=== PATIENT | male | born 1950 | race Caucasian/White ===

== ENCOUNTER 2019-05-28 18:24 | Inpatient (IN) ==
[2019-05-28] MEDS ORDERED: ASPIRIN PO ONE (18:55)
--- NOTE | 2019-05-28 19:19 | Diag Imaging Result Doc PS360 ---
EXAM: CHEST-2 VIEWS 05/28/2019 HISTORY: SOB TECHNIQUE: PA and lateral chest COMMENT: There is bibasilar subsegmental atelectasis. The inspiration is suboptimal. IMPRESSION: Bibasilar atelectasis. Electronically signed by Prem Dixon 05/28/2019 7:17 PM
[2019-05-28 20:03] LABS: BASO# 0.01 X1000 (0.0-0.2); BASO% 0.1 % (0.0-0.8); EOS# 0.02 X1000 (0.0-0.7); EOS% 0.1 % (0.0-10.0); HEMATOCRIT 37.3 % (42.0-52.0); HEMOGLOBIN 13.2 g/dL (14.0-18.0); IMM GRAN# 0.05 X1000 (0.0-0.04); IMM GRAN% 0.3 % (0.0-0.5); LYMPH# 0.74 X1000 (1.2-3.4); LYMPH% 4.1 % (20.5-51.1); MCH 32.7 PG (27-31); MCHC 35.4 g/dL (33-37); MCV 92.3 FL (81-99); MONO# 2.17 X1000 (0.11-0.59); MONO% 12.2 % (1.7-9.3); MPV 12.6 FL (7.4-10.4); NEUT# 14.87 X1000 (1.4-6.5); NEUT% 83.2 % (42.2-75.2); PLT 206 X1000 (130-400); RBC 4.04 XMIL (4.7-6.1); RDW 17.1 % (11.5-14.5); WBC 17.86 X1000 (4.8-10.8)
[2019-05-28 20:08] LABS: INR 1.98
[2019-05-28 20:09] LABS: PTT 35.8 Seconds (22.3-41.8)
--- NOTE | 2019-05-28 20:49 | PROVIDER DOCUMENTATION ---
This chart was entered by Madi Beltran Scribe, acting as scribe for Alley Madsen MD. HPI-General Adult - General Chief Complaint: Shortness of Breath Stated Complaint: SOB, WHEEZING Time Seen by Provider: 05/28/19 19:32 Source: patient, family Allergies/Adverse Reactions: Patient Allergies Allergy/AdvReac Type Severity Reaction Status Date / Time No Known Allergies Allergy Verified 05/14/19 21:55 Home Medications: Home Medication List Medication Instructions Recorded Confirmed Last Taken Type LISINOpril [Prinivil] 20 mg PO BID 01/10/17 05/25/19 05/24/19 21:00 History Metoprolol Succinate E.r. [Toprol 25 mg PO DAILY 01/10/17 05/25/19 05/24/19 21:00 History Xl] Cefpodoxime Proxetil 200 mg PO BID 05/14/19 05/25/19 05/24/19 21:00 History Hydrochlorothiazide 25 mg PO DAILY 05/14/19 05/25/19 05/24/19 21:00 History Morphine Sulfate 15 mg PO Q6-8H PRN PRN 05/14/19 05/25/19 05/24/19 21:00 History Ondansetron [Zofran] 4 mg PO Q8HR PRN 05/14/19 05/25/19 05/24/19 21:00 History - History of Present Illness -Gen Adult Nature of Presenting Problems: Pt is a 68 yom who presents to the ED with family with a CC of multiple complaints. Pt's reports the pt is a liver cancer pt. Pt's states the pt has been short of breath, had a dry cough, had edema, weak, confused, and constipated for approximately one week. Pt's reports the pt was seen last week by his cancer doctor for his edema and states his Bilirubin was elevated. Pt's reports the pt was taken to [facility] and states no blockage was found. Pt's reports the pt had a paracentesis preformed three days ago. Pt's reports the pt's shortness of breath and confusion worsened yesterday. Pt's also states the pt has been constipated since Friday and states that his last bowel movement was Friday morning. Pt complains of chest pain and abdominal pain. Location of Pain/Injury: reports: chest, abdomen Pain Radiation: reports: no radiation Quality of Pain: reports: aching Severity: reports: mild Onset/Duration: reports: 1 week ago Timing: reports: still present Associated Symptoms: reports: chest pain, constipation, cough, shortness of breath, trouble walking, other (Edema) Similar Symptoms Previously?: Yes Recently seen or treated by another doctor?: Yes Review of Systems - Adult - REVIEW OF SYSTEMS - ADULT Constitutional: reports: see HPI Eyes: reports: no symptoms reported Ears, Nose, Mouth & Throat: reports: no symptoms reported Cardiovascular: reports: see HPI, chest pain Respiratory: reports: see HPI, cough, shortness of breath Gastrointestinal: reports: see HPI, abdominal pain, constipation Genitourinary: reports: no symptoms reported Musculoskeletal: reports: see HPI, joint swelling Integumentary: reports: no symptoms reported Neurological: reports: see HPI, other (Confusion) Psychiatric: reports: no symptoms reported Endocrine: reports: see HPI Hematologic/Lymphatic: reports: no symptoms reported Allergic/Immunologic: reports: no symptoms reported All Other Systems: Reviewed and Negative Past History - Adult - PAST MEDICAL HISTORY-ADULT Review of Records: reports: Old Records Reviewed, Nursing Assessment Review, Medications Reviewed, Social history reviewed & non-contributory. Major Childhood Illnesses: reports: denies history Cardiovascular: reports: HTN Respiratory: reports: denies history Gastrointestinal: reports: cancer (liver) Obstetrical/Gynecological: reports: denies history Genitourinary: reports: denies history Musculoskeletal: reports: denies history Neurological: reports: denies history Endocrine/Immune: reports: denies history Other Conditions: reports: denies history - PRIOR SURGERIES/PROCEDURES Surgical/Procedure History: reports: none - IMMUNIZATION STATUS Childhood Immunizations: See Nurse Assessment Flu Vaccine: See Nurse Assessment - FAMILY HISTORY Family History: reviewed, not pertinent - SOCIAL HISTORY Smoking: denies Substance Use: none/never, denies Alcohol Use Frequency: never Physical Exam-General - PHYSICAL EXAM-ADULT Initial Vital Signs Reviewed: Yes - CONSTITUTIONAL General Appearance: alert, mild distress - EYES Eyes: PERRL/EOMI - HEAD, EARS, NOSE, MOUTH & THROAT HENMT: normocephalic/atraumatic, moist mucous membranes - NECK Neck: non-tender, full range of motion - RESPIRATORY Respiratory: chest non-tender, lungs clear, normal breath sounds - CARDIOVASCULAR Cardiovascular: normal peripheral pulses, regular rate, rhythm - GASTROINTESTINAL (ABDOMEN) Abdominal Exam: tenderness (Mildly) - MUSCULOSKELETAL Extremity: erythema, swelling - SKIN Integumentary: erythema, swelling, tenderness - PSYCHIATRIC Psych/Mental Status: normal mood/affect, normal thought content, normal thought process, oriented x 3 Progress - PLAN OF CARE/RESULTS Progress/Plan/Lab Results: Vital Signs - 8 hr 05/28/19 18:41 Temperature 97.8 F Pulse Rate 96 H Respiratory Rate 16 Blood Pressure 143/84 O2 Sat by Pulse Oximetry 96 Laboratory Results - last 24 hr 05/28/19 05/28/19 19:51 19:51 WBC 17.86 H RBC 4.04 L Hgb 13.2 L Hct 37.3 L MCV 92.3 MCH 32.7 H MCHC 35.4 RDW Std Deviation 17.1 H Plt Count 206 MPV 12.6 H Immature Gran % (Auto) 0.3 Neut % (Auto) 83.2 H Lymph % (Auto) 4.1 L [place] % (Auto) 12.2 H Eos % (Auto) 0.1 Baso % (Auto) 0.1 Immature Gran # (Auto) 0.05 H Neut # (Auto) 14.87 H Lymph # (Auto) 0.74 L [place] # (Auto) 2.17 H Eos # (Auto) 0.02 Baso # (Auto) 0.01 PT 23.0 H INR 1.98 PTT (Actin FS) 35.8 Orders Category Date Time Status Cardiac Monitoring DIRECTED Care 05/28/19 18:55 Active Cardiac Monitoring DIRECTED Care 05/28/19 18:56 Active Finger Stick Blood Sugar (ED) DIRECTED Care 05/28/19 18:56 Active Oxygen Therapy- ED Nursing DIRECTED Care 05/28/19 18:55 Active Oxygen Therapy- ED Nursing DIRECTED Care 05/28/19 18:56 Active Saline Loc NOW Care 05/28/19 18:55 Active Saline Loc NOW Care 05/28/19 18:56 Active CHEST-2 VIEWS [RAD] Stat Exams 05/28/19 18:55 Completed ALCOHOL BLOOD Stat Lab 05/28/19 19:51 Received AMMONIA [CHEM] Stat Lab 05/28/19 19:54 Ordered CBC WITH ELECTRONIC DIFF [HEME] Stat Lab 05/28/19 19:51 Completed CK PROFILE [SP CHEM] Stat Lab 05/28/19 19:51 Received COMPREHENSIVE METABOLIC PANEL [CHEM] Stat Lab 05/28/19 19:51 Received LACTATE, PLASMA [CHEM] Stat Lab 05/28/19 19:51 Received PRO B-NATRIURETIC PEPTIDE Stat Lab 05/28/19 19:51 Received PROTIME WITH INR [COAG] Stat Lab 05/28/19 19:51 Completed PTT [COAG] Stat Lab 05/28/19 19:51 Completed TROPONIN T Stat Lab 05/28/19 19:51 Received URINALYSIS [URINALYSIS] Stat Lab 05/28/19 18:57 Uncollected Aspirin Med 05/28/19 18:55 Discontinued 325 mg PO NOW ONE Altered Mental Status Stat Oth 05/28/19 18:56 Ordered CP/SOB/Palp >45 yrs of Age Stat Oth 05/28/19 18:55 Ordered EKG [EKG] Stat Ther 05/28/19 18:55 Ordered Result Diagrams: 05/28/19 19:51 - EKG 1 Time of EKG reading by physician:: 18:32 EKG Read and Signed by:: Alley Madsen EKG Interpretation (*Must complete 3 of following elements*): Abnormal (Left axis deviation; Possible anterior infarct, age undetermined) Rate: 96 Rhythm: NSR [place]: left QRS: normal [place] Interval: normal ST Wave: normal - XRAY 1 XRAY: Bilateral XRAY Study: Chest Impression: See EMR Report (EXAM: CHEST-2 VIEWS 05/28/2019 HISTORY: SOB TECHNIQUE: PA and lateral chest COMMENT: There is bibasilar subsegmental atelectasis. The inspiration is suboptimal. IMPRESSION: Bibasilar atelectasis. Electronically signed by Perm Dixon 05/28/2019 7:17 PM 05/28/191916 Interpreting Physician: Prem Dixon MD Dictated Date/Time: 05/28/191915 cc: Amalia Mason MD; Adrian Box MD) - CONSULTS/PCP/HOSPITALIST Notification #1 *Consult/PCP/Hospitalist*: d/w Dr Bullock Time Discussed: 21:45 Consult Disposition: Admit Departure - Departure Date of Disposition Decision: 05/28/19 Time of Disposition Decision: 21:50 DIAGNOSIS: Hx of primary malignant neoplasm of liver, Dyspnea, Atelectasis of both lungs, Altered mental status, Jaundice, Sepsis Disposition: ADMITTED INPATIENT 09 Certified Medical Emergency: Emergent Condition: Stable Additional Instructions: ED Follow Up Instructions: You have been treated by a care provider in the Emergency Department. These instructions are being provided to you so you can have an understanding of how to care for yourself upon discharge. Upon discharge from the Emergency Dep artment, you are responsible for making arrangements for follow-up care by a physician of your choice. Take all prescribed medications as directed. Return to the Emergency Department immediately for any new or worsening symptoms. You may call the Physician Referral phone number at [phone] to obtain a list of Physicians who are taking new patients. Referrals and Follow-Ups: Adrian Box MD [Primary Care Provider] - - Critical Care Note This patient required my direct & personal management of CC.: No Attestation - Physician/ TAMIA Attestation Patient care was provided by Advanced Practice Provider:: No The physician spent face to face time with patient:: Yes Advanced Practice Provider documentation review:: Supervising physician onsite and consulted in the evaluation and care of this patient. The physician did have a face to face encounter with the patient. This chart was documented by the indicated scribe, (Madi Beltran, Mary) and accurately reflects the services I performed and decisions made by me, Alley Madsen MD, as attested by the provider's signature.
[2019-05-28] MEDS ORDERED: ZOSYN 4.5 GM in NS 100 ML IV ONE (21:18)
[2019-05-28 21:27] LABS: URINE SOURCE CLEAN CATCH
[2019-05-28 21:29] LABS: BILIRUBIN URINE LARGE (NEGATIVE); BLOOD URINE NEGATIVE (NEGATIVE); COLOR YELLOW; GLUCOSE URINE NEGATIVE (NEGATIVE); KETONE URINE NEGATIVE (NEGATIVE); LEUKOCYTES URINE NEGATIVE (NEGATIVE); NITRITE URINE NEGATIVE (NEGATIVE); PH URINE 5.5; PROTEIN URINE TRACE mg/dL (NEGATIVE); SP GRAVITY URINE 1.015; TURBIDITY URINE HAZY (CLEAR); UROBILINOGEN URINE 2 mg/dL (NORMAL)
[2019-05-28 21:32] LABS: UR EPITHELIAL CELLS <10 /HPF (<10); URINE BACTERIA NEGATIVE /HPF; URINE RBC 20-40 /HPF (<10); URINE WBC <10 /HPF (<10)
[2019-05-28 22:10] LABS: INR 1.99; PROTIME 23.1 Seconds (11.0-16.0)
--- NOTE | 2019-05-28 22:26 | EKG Report ---
Test Performed on : 05/28/2019 6:31:06 PM Test Reason : SOB Blood Pressure : / mmHG Vent. Rate : 096 BPM Atrial Rate : 096 BPM P-R Int : 172 ms QRS Dur : 096 ms QT Int : 352 ms P-R-T Axes : 063 -39 064 degrees QTc Int : 444 ms Normal sinus rhythm. Left axis deviation Possible Anterior infarct , age undetermined Abnormal ECG When compared with ECG of 24-JAN-2009 07:13, Borderline criteria for Anterior infarct are now present Unconfirmed Result
[2019-05-28 22:27] LABS: ALB/GLOB RATIO 0.6; ALBUMIN 2.2 g/dL (3.5-5.0); CALCIUM 8.1 mg/dL (8.8-10.2); CREATININE 2.1 mg/dL (0.7-1.2); POTASSIUM 5.7 mmol/L (3.5-5.1); TOTAL PROTEIN 5.8 g/dL (6.3-8.3)
[2019-05-28] MEDS ORDERED: APRESOLINE IV PRN (22:31)
[2019-05-28] MEDS ORDERED: LASIX IV ONE (22:34)
[2019-05-28] MEDS ORDERED: CALCIUM GLUCONATE 1 GM in NS 50 ML IV ONE (22:38)
[2019-05-28] MEDS ORDERED: HUMULIN R IV ONE (22:39)
[2019-05-28] MEDS ORDERED: ALBUTEROL 0.5% INH CONC FOR HYPERKALEMIA INH ONE (22:39)
[2019-05-28] MEDS ORDERED: D50W SYRINGE IV ONE (22:39)
[2019-05-28] MEDS ORDERED: SODIUM BICARBONATE 8.4% IV PUSH ONE (22:39)
[2019-05-28] MEDS ORDERED: ALBUTEROL 0.5% INH CONC FOR HYPERKALEMIA ONE (22:58)
[2019-05-28 22:59] LABS: TOTAL BILIRUBIN 18.27 mg/dL (0.20-1.00)
--- NOTE | 2019-05-28 23:14 | HISTORY AND PHYSICAL ---
CHIEF COMPLAINT: Shortness of breath. HISTORY OF PRESENT ILLNESS: This is an unfortunate 68-year-old male who comes in with complaint of recently diagnosed liver cancer within the last month. I believe he has been receiving treatments by Dr. Box. He had a paracentesis as well as his treatment I believe on Friday this week. The states that he has had a dry cough which has caused him some shortness of breath. Also states he has not had a bowel movement since Friday and he has had progressive confusion. The patient does have an elevated white blood cell count. However, I am unable to quantify this. He is confused. We will place him on broad spectrum antibiotics and place him in the hospital for further evaluation and treatment. PAST MEDICAL HISTORY: Hypertension, liver cancer. PREVIOUS SURGICAL HISTORY: Denies. SOCIAL HISTORY: Lives with . Quit tobacco and alcohol 12 years ago. No illicit drugs. FAMILY HISTORY: Mother had diabetes mellitus. Denies other. ALLERGIES: No known drug allergies. HOME MEDICATIONS: A list has not been reconciled with dosages. However, the says she thinks all he takes is a fluid pill, Zofran and morphine at this time. REVIEW OF SYSTEMS: Fourteen-point review of systems conducted with the patient. He is altered but denies complaint at this time. Pertinent positives for admission are listed above in the HPI. PHYSICAL EXAMINATION: VITAL SIGNS: Temperature 97.8, pulse 101, respirations 15, blood pressure 155/89, oxygen saturation 95% on room air. GENERAL: Very jaundiced 68-year-old male sitting in the ER stretcher. He is confused, oriented to person, very pleasant, in no acute distress. HEENT: Head is atraumatic, normocephalic. Pupils equal, round, reactive to light. Extraocular eye movement is intact. Sclerae are jaundiced. Conjunctiva is somewhat pale. Oral mucosa is dry. NECK: Supple. No JVD. No thyromegaly. Trachea is midline. No cervical lymphadenopathy. CARDIAC: S1, S2 appreciated. No murmurs, gallops, rubs. LUNGS: Decreased bilateral bases. No rhonchi, wheezes, rales. Symmetric rise and fall with respirations. ABDOMEN: Protuberant, slightly distended. Bowel sounds hypoactive all 4 quadrants. Tender to palpation in the epigastric area and right upper quadrant. EXTREMITIES: Three-plus pitting edema in bilateral lower extremities mid thigh down. Two-plus pedal pulses bilaterally. No clubbing, cyanosis. GENITOURINARY: No bladder distention. Otherwise deferred. NEUROLOGICAL: Oriented only to person. Follows commands somewhat. However, cranial nerves 2 through 12 could not be fully tested. The patient continually tries to get up out of the bed. DIAGNOSTIC DATA: Chest x-ray: Bibasilar atelectasis. LABORATORY DATA: WBC 17.86. Hemoglobin 13.2. Hematocrit 37.3. Platelet count 206. PT 23.1. INR 1.99. Sodium 127. Potassium 5.7. Chloride 91. Carbon dioxide 22. BUN 62. Creatinine 2.1. Glucose 126. Total bilirubin 17.79. ASSESSMENT AND PLAN: 1. Liver cancer. I believe the patient has received treatments from Dr. Box. We will consult him. His total bilirubin continues to elevate. It is now at 17.79. He also appears to have an acute kidney injury. We will consult Dr. Box as noted. Give patient fluids. We will also give albumin and Lasix as he is very edematous in his lower extremities and is third spacing. 2. Hypertension. Patient is marginally hypertensive at this time. We will treat with p.r.n. hydralazine. 3. Hepatic encephalopathy. We will start patient on lactulose b.i.d. His ammonia was within normal limits. However. This is more of a clinical diagnosis. 4. Leukocytosis. As noted, we will continue renally dosed Zosyn. 5. Code status needs to be addressed with the patient. Defer this to primary team and Oncology. Dictated by JERICHO Silva for Arnulfo Bullock MD I have performed a face to face diagnostic evaluation. Labs/ Xrays- reviewed. Exam- Chest- rales, CV- regular, Neuro- Altered. A/P- AMS, Liver cancer,- Admit, neuro checks, oncology consult. Dr. Bullock. cc: JERICHO Silva MD Primary care providers [facility]
[2019-05-29] MEDS: ALBUMIN 25% IV SCH ×2 (00:18→06:17)
[2019-05-29] MEDS: LACTULOSE PO SCH ×3 (00:45→20:02)
[2019-05-29] MEDS ORDERED: NS 1,000 ML IV ONE (01:03)
[2019-05-29] MEDS ORDERED: TESSALON PO PRN (01:03)
[2019-05-29] MEDS: MORPHINE IV PRN ×5 (01:18→20:02)
[2019-05-29] MEDS: ZOSYN 2.25 GM in NS 50 ML IV SCH ×5 (05:05→21:38)
[2019-05-29 08:03] LABS: BASO# 0.01 X1000 (0.0-0.2); BASO% 0.1 % (0.0-0.8); HEMATOCRIT 30.2 % (42.0-52.0); HEMOGLOBIN 10.7 g/dL (14.0-18.0); IMM GRAN# 0.03 X1000 (0.0-0.04); IMM GRAN% 0.2 % (0.0-0.5); LYMPH# 0.91 X1000 (1.2-3.4); LYMPH% 5.6 % (20.5-51.1); MCH 33.2 PG (27-31); MCHC 35.4 g/dL (33-37); MCV 93.8 FL (81-99); MONO# 1.92 X1000 (0.11-0.59); MONO% 11.9 % (1.7-9.3); MPV 11.3 FL (7.4-10.4); NEUT# 13.26 X1000 (1.4-6.5); NEUT% 82.2 % (42.2-75.2); PLT 138 X1000 (130-400); RBC 3.22 XMIL (4.7-6.1); RDW 16.8 % (11.5-14.5); WBC 16.13 X1000 (4.8-10.8)
[2019-05-29] MEDS: ZOFRAN IV PRN ×2 (08:25→13:28)
[2019-05-29 08:31] LABS: ALB/GLOB RATIO 0.9; ALBUMIN 2.6 g/dL (3.5-5.0); CALCIUM 8.4 mg/dL (8.8-10.2); CREATININE 2.4 mg/dL (0.7-1.2); TOTAL PROTEIN 5.4 g/dL (6.3-8.3)
[2019-05-29 08:54] LABS: TOTAL BILIRUBIN 16.71 mg/dL (0.20-1.00)
[2019-05-29] MEDS ORDERED: LASIX IV ONE (09:00)
[2019-05-29] MEDS ORDERED: ALBUMIN 25% IV ONE (10:08)
[2019-05-29] MEDS ORDERED: SANDOSTATIN SUBQ SCH (10:30)
[2019-05-29] MEDS ORDERED: PROAMATINE PO SCH (10:30)
--- NOTE | 2019-05-29 11:10 | PROGRESS NOTE ---
DATE: 05/29/2019 INTERVAL HISTORY: Mr. Andujar was admitted overnight for suspected acute on chronic liver failure, suspected acute hepatic encephalopathy. SUBJECTIVE: The patient is confused, so most of the history was obtained by the patient's at bedside. Apparently, the patient was diagnosed with hepatic focal adenocarcinoma, poorly differentiated, with areas of necrosis and fibrosis, as well as intra-abdominal lymphadenopathy in April 2019 and so far has received 3 cycles of treatment of nivolumab. His last cycle was 5 days before current presentation, however, 10 days before current presentation he was found to have acute rise in bilirubin and was sent to [facility] where they did not detect any infection in his ascitic fluid nor was there any biliary ductal obstruction and he was discharged home. Since last 48 hours he has had increasing confusion, he has had worsening cough so he was brought to the emergency room. His vitals have been rather stable. He appears to be confused. PHYSICAL EXAMINATION: Vitals: Currently temperature 98.1 degrees, pulse 97, respiratory rate 14, blood pressure 114/56. He is saturating 96% on room air. General: Does not appear in any acute distress. He is very confused. He has marked scleral icterus. Oral cavity is dry. Lungs: Air entry bilaterally equal. No wheeze, rhonchi, or crackles. Cardiovascular: S1, S2 normal. Tachycardic. No murmur, rub, or gallop. Abdomen: Distended. Generalized tenderness, dullness to percussion over bilateral flanks. Active bowel sounds. Extremities: Bilateral lower extremity edema extending up to the thigh. He also has right leg cellulitis or it could be a fixed drug reaction. LABS: Suggestive of a leukocytosis, normocytic anemia, normal platelet count. His chemistry is suggestive of hyponatremia, hypochloremia, hyperkalemia, low bicarbonate, elevated anion gap, acute kidney injury. He also has lactic acidosis, which has been worsening. MICROBIOLOGY: Blood cultures are in laboratory. IMAGING: Currently pending, head CT. ASSESSMENT AND PLAN: 1. Acute encephalopathy. Could be in the setting of worsening tumor burden, lactic acidosis, acute kidney injury. The reported left upper extremity weakness. I will get the head CT to rule out any CVA. Unclear history of liver cirrhosis makes hepatic encephalopathy a possibility as well. He has been on Nivoloumab which could cause autoimmune encephalitis. 2. Liver failure. According to reports, he had a bilirubin close to 10 seven days prior to current presentation, and she was told that the patient had cirrhosis, last week. I will get repeat CT scan of the abdomen and pelvis in this hospital. Apparently his ALT is not remarkably elevated and his platelet count is normal. Cirrhosis needs to be ruled out. I will follow up CT abd/pelvis. 3. Acute kidney injury. This could be related to intravascular volume depletion or his use of diuretics at home. I am resuscitating him with intravenous fluids and getting urine electrolytes. I will await CT scan of the abdomen and pelvis results to see if there is any evidence of cirrhosis, portal hypertension, or hepatorenal syndrome. Based on that I will start him on octreotide and midodrine on top of his intravenous albumin. 4. Reported constipation and altered mental status. I will start him on lactulose prophylactically, rifaximin and bisacodyl. Apparently, his ammonia level was normal. 5. Suspected sepsis, with presence of lactic acidosis, I will keep him on intravenous fluids and follow up serial lactate. Because of his hepatic disease clearance of lactate could be difficult. 6. Recently diagnosed hepatic adenocarcinoma. I am unsure if these are metastatic lesions adenocarcinoma with unknown primary or hepatocellular carcinoma. I will appreciate Oncology recommendation. I will get hepatitis panel. DISPOSITION: I will monitor the patient in PVC. I will consult Oncology and Gastroenterology. Plan of care was discussed with the patient's and the nursing team. Their questions have been answered. cc: Saúl Forrest MD MTDD
[2019-05-29] MEDS: DULCOLAX PR SCH ×3 (12:15→21:39)
[2019-05-29] MEDS: XIFAXAN PO SCH ×2 (12:56→20:02)
[2019-05-29] MEDS: NS 1,000 ML IV SCH ×3 (13:00→20:47)
[2019-05-29] MEDS ORDERED: REGLAN IV PRN (15:34)
[2019-05-29] MEDS ORDERED: SODIUM CHLORIDE 0.9% 10 ML ONE (16:42)
[2019-05-29] MEDS: ALBUMIN 25% IV ONE ×2 (16:56→18:00)
--- NOTE | 2019-05-29 18:24 | Diag Imaging Result Doc PS360 ---
EXAM: CT HEAD W/O CONTRAST HISTORY: LUE weakness, encephalopathy TECHNIQUE: CT head without contrast COMPARISON: None. FINDINGS: No parenchymal hemorrhage. No epidural or subdural hematoma. No subarachnoid hemorrhage. Mild chronic microvascular ischemic changes No mass identified on this noncontrasted exam. No hydrocephalus. No sinus opacification. IMPRESSION: 1.No hemorrhage 2.Mild chronic microvascular ischemic changes This exam was performed using automated exposure control, adjustment of mA or kV according to patient size, and/or use of iterative reconstruction technique. Electronically signed by Ciaran Tillman 05/29/2019 6:21 PM
--- NOTE | 2019-05-29 18:29 | Diag Imaging Result Doc PS360 ---
EXAM: CT ABDOMEN/PELVIS W/O CONTRAST HISTORY: Evaluate for intrahepatic biliary dilatation TECHNIQUE: CT abdomen and pelvis without contrast COMPARISON: 03/22/2019 FINDINGS: Trace right pleural fluid with basilar atelectasis versus a small infiltrate There is fatty infiltration of the liver. The liver is nodular. Hypodense area superiorly are similar. No definite intrahepatic biliary ductal dilatation although this is a noncontrasted exam. There is a moderate amount of fluid about the liver and spleen. No splenomegaly. The gallbladder is contracted. There is sludge within it. No inflammation about the pancreas. Normal adrenal glands. There are tiny renal calcifications which may be arterial. Prominent atherosclerosis in the abdominal aorta. No aortic aneurysm. No bowel obstruction. No abscess. There is a Norton catheter in the urinary bladder. Moderate free fluid in the pelvis. The subcutaneous edema in the lower abdomen and pelvis. IMPRESSION: 1.Cirrhosis 2.Prominent atherosclerosis 3.Likely sludge in the gallbladder This exam was performed using automated exposure control, adjustment of mA or kV according to patient size, and/or use of iterative reconstruction technique. Electronically signed by Ciaran Tillman 05/29/2019 6:27 PM
--- NOTE | 2019-05-29 19:03 | HEMO/ONC CONSULTATION ---
DATE: 05/29/2019 HPI: Mr. Andujar is a 68-year-old gentleman who is well known to Dr. Box for his multifocal hepatocellular carcinoma. He has diffuse disease involving the liver and lymph nodes and has been on palliative treatment with Opdivo, with his most dose given 05/25/2019. He was admitted with worsening liver failure and renal failure, and we are consulted for assistance with the same. LABORATORY DATA: His baseline bilirubin and creatinine in the office within the last week were: Total bilirubin 11.7, creatinine 1.8. ASSESSMENT/PLAN: Dr. Box has been considering switching his Opdivo therapy to an oral TKI if he were continuing to have progression of his elevated LFTs. This was all thought to be disease related. We will follow along and leave further recommendations as indicated based on hospital course. cc: MD Leann Serna MD
[2019-05-29 19:20] LABS: CALCIUM 7.8 mg/dL (8.8-10.2); CREATININE 1.9 mg/dL (0.7-1.2); POTASSIUM 4.8 mmol/L (3.5-5.1)
[2019-05-29] MEDS ORDERED: MORPHINE IV ONE (21:42)
[2019-05-30] MEDS: MORPHINE IV PRN (01:31)
[2019-05-30] MEDS ORDERED: ATIVAN IV ONE (01:52)
[2019-05-30] MEDS ORDERED: BENADRYL IV ONE (01:53)
[2019-05-30] MEDS: ZOSYN 2.25 GM in NS 50 ML IV SCH ×6 (03:46→21:28)
[2019-05-30] MEDS: DULCOLAX PR SCH (03:46)
[2019-05-30 06:07] LABS: EOS# 0.03 X1000 (0.0-0.7); EOS% 0.3 % (0.0-10.0); HEMATOCRIT 29.4 % (42.0-52.0); HEMOGLOBIN 10.3 g/dL (14.0-18.0); IMM GRAN# 0.02 X1000 (0.0-0.04); IMM GRAN% 0.2 % (0.0-0.5); LYMPH# 0.76 X1000 (1.2-3.4); LYMPH% 6.5 % (20.5-51.1); MCH 32.6 PG (27-31); MONO# 0.98 X1000 (0.11-0.59); MONO% 8.4 % (1.7-9.3); MPV 11.1 FL (7.4-10.4); NEUT# 9.92 X1000 (1.4-6.5); NEUT% 84.6 % (42.2-75.2); PLT 107 X1000 (130-400); RBC 3.16 XMIL (4.7-6.1); RDW 16.9 % (11.5-14.5); WBC 11.71 X1000 (4.8-10.8)
[2019-05-30] MEDS: NS 1,000 ML IV SCH (06:20)
[2019-05-30 06:45] LABS: INR 2.64; PROTIME 28.9 Seconds (11.0-16.0)
[2019-05-30 06:51] LABS: ALB/GLOB RATIO 1.2; CALCIUM 8.1 mg/dL (8.8-10.2); POTASSIUM 4.5 mmol/L (3.5-5.1); TOTAL BILIRUBIN 17.87 mg/dL (0.20-1.00); TOTAL PROTEIN 5.6 g/dL (6.3-8.3)
[2019-05-30] MEDS: XIFAXAN PO SCH ×2 (08:42→20:50)
[2019-05-30] MEDS: LACTULOSE PO SCH ×4 (08:42→16:42)
[2019-05-30] MEDS ORDERED: MORPHINE IV PRN (08:53)
[2019-05-30] MEDS ORDERED: DULCOLAX PR SCH (09:00)
[2019-05-30] MEDS ORDERED: NS 1,000 ML IV SCH (09:49)
[2019-05-30] MEDS: ALBUMIN 25% IV SCH ×3 (10:15→21:28)
--- NOTE | 2019-05-30 10:35 | PROGRESS NOTE ---
DATE: 05/30/2019 INTERVAL HISTORY: There was a delay in obtaining his head CT scan as well as abdominal CT scan. I had to talk with the nursing team on multiple occasions. However, eventually, he did get his CAT scan which did not have any acute cerebrovascular accident. Abdomen and pelvis CAT scan did detect nodularity in the liver suggestive of cirrhosis without any biliary obstruction. There has not been any change in his mental status. SUBJECTIVE: The patient is in the bed, still confused. He was intermittently agitated, requiring lorazepam overnight. He is not able to engage in the conversation meaningfully. Does not appear to be in acute distress. VITALS: Temperature 98.4 degrees, pulse 106, respiratory rate 19, blood pressure 136/68, he is saturating 96% on room air. PHYSICAL EXAMINATION: He has marked icterus. Oral cavity is dry. Lungs: Air entry bilaterally equal. No wheeze, rhonchi, crackles. Cardiovascular: S1, S2 normal. No murmur, rub, or gallop. Abdomen: Distended, nontender. Dullness to percussion, bilateral flanks. Active bowel sounds. He has bilateral lower extremity edema extending up to thigh. He also has right leg cellulitis. LABS: Suggestive of leukocytosis which is decreasing. Normocytic anemia, thrombocytopenia, coagulopathy. He has persistently elevated BUN and creatinine, though his sodium and electrolytes are better. Persistently elevated transaminitis and bilirubin. IMAGING: No new imaging today. ASSESSMENT AND PLAN: 1. Acute metabolic encephalopathy in the setting of hyperbilirubinemia and acute kidney injury. His lactic acidosis has resolved. His ammonia level was low. Head CT did not have acute cerebrovascular accident. Other differential includes hepatic encephalopathy, nivolumab- induced autoimmune encephalitis, which are less likely at the moment. 2. Acute liver failure in the setting of hepatocellular carcinoma. His elevated bilirubin and alkaline phosphatase could indicate intrahepatic cholestasis because of worsening tumor burden. I will appreciate gastroenterology input. 3. Acute kidney injury with hyponatremia and hypochloremia. His electrolytes marginally improved with intravenous fluids but his kidney function remains as it was yesterday. His fractional excretion of sodium indicates prerenal pathology. I will treat it as hepatorenal syndrome and start him on midodrine and octreotide. I will also keep giving him intravenous albumin. 4. Constipation with altered mental status. I will treat him empirically for hepatic encephalopathy with rifaximin, lactulose, and bisacodyl. He has had good bowel movements. 5. Suspected sepsis with presence of lactic acidosis. I will keep him on intravenous fluids. His lactic acidosis has resolved. Keep him on broad-spectrum intravenous antibiotics. 6. Recently diagnosed hepatic adenocarcinoma with lymphadenopathy. Oncology team on board. 7. Disposition. The patient has a poor prognosis and the palliative care team has also been consulted. Currently, his code status is full by default as family has not decided about his long-term issues. cc: Saúl Forrest MD
[2019-05-30] MEDS: LACTULOSE MISC SCH ×2 (12:26→17:34)
[2019-05-30] MEDS: SANDOSTATIN SUBQ SCH ×2 (12:57→20:50)
[2019-05-30] MEDS: PROAMATINE PO SCH ×2 (12:57→16:40)
--- NOTE | 2019-05-30 13:05 | GASTROENTEROLOGY CONSULTATION ---
DATE: 05/30/2019 REASON FOR CONSULTATION: Acute liver failure, abnormal LFTs. HISTORY OF PRESENT ILLNESS: Mr. Kobe Andujar is a 68-year-old gentleman with past medical history of hypertension, cirrhosis, multifocal HCC diagnosed in 04/2019, on Opdivo, who presented 2 days ago with worsening confusion, generalized weakness, and shortness of breath. The history is obtained from the medical record and the patient's at bedside given the patient's altered mental status. Mr. Andujar was diagnosed with HCC in early April after presenting to his primary care doctor with abdominal pain, and having workup done from there. He underwent a biopsy of multifocal liver lesion that confirmed his HCC in mid-April, and has received 3 cycles of Op[address]o by Dr. Box. His last treatment was this past Friday. He was recently discharged from [facility] after being treated with pneumonia. Early last week, on Friday, he underwent LVP with 2.5 L of ascites removed. The notes that over the last couple of weeks, he has become more jaundiced and confused. He has been having some nausea without any vomiting. No fevers, rectal bleeding, or melena. He has had some weight gain from ascites. He was on outpatient Lasix and Aldactone. He has never had a paracentesis prior to this past week. No history of encephalopathy in the past. He does not take lactulose at home. He is not on any antibiotics anymore after his pneumonia. REVIEW OF SYSTEMS: As per HPI. Limited secondary to altered mental status. PAST MEDICAL HISTORY: Hypertension, recent diagnosis of cirrhosis and HCC. PAST SURGICAL HISTORY: None. FAMILY HISTORY: No family history of GI malignancies. SOCIAL HISTORY: Prior heavy drinker and smoker, quit 12 years ago. HOME MEDICATIONS: Dronabinol, Lasix, Aldactone, Zofran, and Opdivo. ALLERGIES: No known drug allergies. PHYSICAL EXAMINATION: Vital Signs: Temperature is 98.4, heart rate 106, respiratory rate 18, blood pressure 136/68, O2 saturation 96% on 2 L nasal cannula. General: The patient is chronically ill-appearing, in no acute distress. HEENT: Scleral icterus is present. Extraocular motor intact. Oropharynx with moist mucous membranes. Neck: Supple. No JVD or lymphadenopathy. Cardiac: Tachycardic. No murmurs. Lungs: Clear to auscultation bilaterally anteriorly. Abdomen: Obese, distended. Bowel sounds are present. Difficult to appreciate ascites. Extremities: There is 3+ pitting edema bilaterally. Neurologic: The patient is not able to verbalize or follow commands. He does have some asterixis. He is moving his extremities spontaneously bilaterally. LABORATORY DATA: White count is 11.7 from 17 on admission, hemoglobin is 10.3 from 13.2, platelets are 107,000 from 206,000. INR is 2.6 from 1.99 on admission. Sodium 137, potassium 4.5 from 5.7, chloride of 97, bicarb 22, BUN of 64, creatinine of 2.0 from a baseline of 1.8 as an outpatient, glucose of 88. Total bilirubin is 17.8 from 18.2, AST of 206 from 270, ALT of 46 from 63, alkaline phosphatase of 430 from 672. Ammonia is 28. Troponins are negative. Total protein of 5.6, albumin 3.0, lactate of 2.1 from 9.0. UA shows large bilirubin. Alcohol level is negative. IMAGING: Chest x-ray shows bibasilar atelectasis. CT of the abdomen and pelvis without contrast shows cirrhosis, prominent atherosclerosis, gallbladder sludge. Head CT: No acute findings. ASSESSMENT AND PLAN: Mr. Kobe Andujar is a 68-year-old gentleman with multifocal hepatocellular carcinoma, on Opdivo, who was admitted 2 days ago with worsening decompensation of his cirrhosis and probable acute liver failure. He appears to have been significantly volume depleted with lactic acidosis and heme concentration and acute kidney injury. His acute kidney injury has improved slightly, lactic acidosis has resolved, and his blood counts have improved with volume resuscitation. He has been empirically treated for hepatorenal syndrome with octreotide, albumin, midodrine, and intravenous fluids. He is on empiric antibiotics with Zosyn, and receiving Xifaxan. He had 1 bowel movement yesterday, but has not been able to take in any oral lactulose today given his mental status. Overnight, per RN, he was given some Ativan for agitation, trying to get out of the bed. This may be contributing to his somnolence. I recommend avoiding any benzodiazepines in the setting of liver dysfunction. The etiology of his acute liver failure was likely secondary to progressive hepatocellular carcinoma. However, cannot rule out immune mediated hepatitis from Opdivo. Typically, the pattern is hepatocellular in nature, and his current liver function test pattern is cholestatic. There are no signs of biliary dilation on CT. His liver function tests have slightly improved since admission. I have discussed with Dr. Cazares, the possibility of immune mediated hepatitis. We will get a diagnostic paracentesis tomorrow, and if negative for spontaneous bacterial peritonitis, start him on prednisone therapy with 1 mg/kg. Continue to trend his liver function tests and INR daily. We are giving him some vitamin K to reverse his INR. We will start him on lactulose enemas. Recommend goals of care discussion and code status change. Overall, his prognosis is guarded and poor. Thank you for this consult. Will follow with you. Please call with any questions or concerns.
[2019-05-30] MEDS: D5 1/2 NS 1,000 ML IV SCH (16:38)
[2019-05-30] MEDS: MYCOSTATIN POWDER TOP SCH (16:41)
[2019-05-31] MEDS: DILAUDID IV PRN ×3 (00:29→06:24)
[2019-05-31] MEDS: SANDOSTATIN SUBQ SCH ×4 (03:32→20:30)
[2019-05-31] MEDS: ZOSYN 2.25 GM in NS 50 ML IV SCH ×4 (03:32→22:31)
[2019-05-31 06:36] LABS: EOS# 0.06 X1000 (0.0-0.7); EOS% 0.6 % (0.0-10.0); HEMATOCRIT 29.2 % (42.0-52.0); HEMOGLOBIN 10.4 g/dL (14.0-18.0); IMM GRAN# 0.02 X1000 (0.0-0.04); IMM GRAN% 0.2 % (0.0-0.5); LYMPH# 0.79 X1000 (1.2-3.4); LYMPH% 7.6 % (20.5-51.1); MCH 33.1 PG (27-31); MCHC 35.6 g/dL (33-37); MONO# 1.14 X1000 (0.11-0.59); MPV 11.8 FL (7.4-10.4); NEUT# 8.32 X1000 (1.4-6.5); NEUT% 80.6 % (42.2-75.2); PLT 123 X1000 (130-400); RBC 3.14 XMIL (4.7-6.1); RDW 17.2 % (11.5-14.5); WBC 10.33 X1000 (4.8-10.8)
[2019-05-31 06:46] LABS: INR 3.23
[2019-05-31 07:10] LABS: ALB/GLOB RATIO 1.7; ALBUMIN 3.6 g/dL (3.5-5.0); CALCIUM 7.6 mg/dL (8.8-10.2); CREATININE 1.9 mg/dL (0.7-1.2); POTASSIUM 4.1 mmol/L (3.5-5.1); TOTAL PROTEIN 5.7 g/dL (6.3-8.3)
[2019-05-31 07:33] LABS: TOTAL BILIRUBIN 19.85 mg/dL (0.20-1.00)
[2019-05-31] MEDS ORDERED: XYLOCAINE 5% OINT TOP PRN (07:56)
[2019-05-31] MEDS: LACTULOSE MISC SCH ×3 (08:28→16:51)
[2019-05-31] MEDS: VITAMIN K 10 MG in NS 50 ML IV SCH (08:38)
[2019-05-31] MEDS: LACTULOSE PO SCH ×3 (08:38→16:51)
[2019-05-31] MEDS: XIFAXAN PO SCH ×2 (08:38→20:30)
[2019-05-31] MEDS: PROAMATINE PO SCH ×3 (08:38→16:51)
[2019-05-31] MEDS: MYCOSTATIN POWDER TOP SCH (08:38)
[2019-05-31 09:32] LABS: HEPATITIS PROFILE ACUTE SEE COMMENTS
[2019-05-31] MEDS: MARINOL PO SCH ×2 (09:46→20:29)
[2019-05-31] MEDS: MORPHINE IR PO PRN ×2 (09:46→16:51)
--- NOTE | 2019-05-31 09:47 | Diag Imaging Result Doc PS360 ---
US ABD PARACENTESIS W S/I - 05/31/2019 INDICATION: r/o SBP COMPARISON: CT 05/29/2019 FINDINGS: The risks and benefits of the procedure were discussed with the patient. All questions were answered. Written and verbal consent was obtained. Ultrasound scanning demonstrated trace ascites. Overlying skin was prepped and draped in sterile fashion. Anesthesia was achieved with injection of 10 cc 1% lidocaine. The spinal needle was advanced until the return of ascites fluid. 2 mL was aspirated, this was very blood-tinged as there is only trace ascites in this area. The catheter was withdrawn intact. The patient reported no symptoms from the procedure. IMPRESSION: Successful and uncomplicated ultrasound-guided paracentesis. Electronically signed by Adalid Ann 05/31/2019 9:45 AM
--- NOTE | 2019-05-31 10:55 | PROGRESS NOTE ---
DATE: 05/31/2019 INTERVAL HISTORY: He has had multiple bowel movements yesterday. He had started becoming a little more alert. He ate a little bit of Jell-O yesterday. However, at nighttime, he was complaining of pain and wanted to come out of bed, so he received hydromorphone, which did not help, so the patient and family were requesting oral pain medication. In the morning time, he is slightly more alert and interactive than before, though he still appears to be confused. He is not coughing during my examination. is at bedside. VITALS: Temperature 98.5 degrees, pulse 94, respiratory rate 19, blood pressure 150/80. He is saturating 100% on room air. PHYSICAL EXAMINATION: Prominent scleral icterus. Oral cavity is moist. Lungs: Air entry bilaterally equal. No wheeze, rhonchi, or crackles. Cardiovascular: S1, S2 normal. No murmur, rub, or gallop. Abdomen: Distended, nontender. Dullness to percussion on flanks. Right-sided upper quadrant had dressing because of previous paracentesis oozing. Active bowel sounds. Bilateral lower extremity edema, which is worse than before. He also has a right-sided leg cellulitis. He is alert. Examination is currently nonfocal. He was able to reposition himself in the bed and trying to get up. However, he often has confusion and appears delirious. LABS: Suggestive of no leukocytosis, normocytic anemia, thrombocytopenia, elevated INR. He has slight improvement in BUN and creatinine. Blood sugars, he does not have any more hypoglycemia. Bilirubin continues to rise. MICROBIOLOGY: No positive data. IMAGING: He just underwent a paracentesis. ASSESSMENT AND PLAN: 1. Acute metabolic encephalopathy, likely due to acute liver failure, suspected hepatic encephalopathy, uremia from acute kidney injury. I will continue to address his pain with morphine, which was his home medication, with close monitoring of his mental status and address the underlying etiology. 2. Acute liver failure in the setting of hepatocellular carcinoma, ascites with suspected spontaneous bacterial peritonitis, and hepatic encephalopathy, as well as hepatorenal syndrome. He continues to have worsening liver function tests. This could be in the setting of progression of his cancer, spontaneous bacterial peritonitis, as well as suspected autoimmune hepatitis with nivolumab use. Oncology on board. Palliative care on board. I will continue broad-spectrum intravenous antibiotics and treatment of hepatorenal syndrome with intravenous albumin, midodrine, and octreotide with close monitoring of input and output. 3. Acute kidney injury with hyponatremia and hypochloremia, likely because of hepatorenal syndrome, currently stable. Continue management as mentioned above. 4. Constipation and altered mental status. Continue rifaximin and lactulose. 5. Suspected sepsis with presence of lactic acidosis. Plan as mentioned above. The potential source could be spontaneous bacterial peritonitis or mild right lower lung infiltrate. Follow up US paracentesis results. 6. Hepatocellular carcinoma with lymphadenopathy diagnosed in December 2018. Oncology on board. 7. Disposition. Mr. Andujar' prognosis is poor. I have consulted palliative care for further goals of care discussion. He could be an appropriate candidate of palliative care, comfort care or hospice, depending on his course and oncology recommendations. Plan of care discussed with the patient's at bedside. Her questions have been answered. cc: Saúl Forrest MD MTDD
[2019-05-31] MEDS: ALBUMIN 25% IV SCH (11:57)
--- NOTE | 2019-05-31 13:19 | GASTROENTEROLOGY PROGRESS NOTE ---
DATE: 05/31/2019 SUBJECTIVE: Mr. Andujar 68-year-old male resting in bed. Patient speech is slurred. Family at the bedside. The family stated that he had 2 to 3 bowel movements last night. OBJECTIVE: Vital Signs: Temperature is 98.5 degrees, pulse is 94, respirations 19, blood pressure is 154/81, oxygen saturation is 100%. He is on 2 L nasal cannula. His weight is 221 pounds. BMI is 30.1 kg/m2. General: The patient is alert, oriented x2, and in no acute distress. HEENT: Pale conjunctivae. Scleral icterus. PERRL. Neck: Supple. Lungs: Clear to auscultation bilaterally in anterior delarosa. Cardiovascular: The patient is tachycardic. Abdomen: distended, obese. tender, hypoactive bowel sounds present. Extremities: No clubbing, no cyanosis. Pitting edema 3+ bilaterally and cellulitis in the right lower extremity Neurologic: He is alert, oriented x2. LABORATORY DATA: WBC is 10.3, RBCs 3.14, hemoglobin is 10.4, hematocrit is 29.2, platelet count is 123,000. PT is 34, INR 3.23. Sodium 138, potassium 4.1, chloride 99, carbon dioxide is 20, anion gap 19, BUN is 66, creatinine is 1.9, glucose 168, calcium 7.6, total bilirubin 19.85, AST 200, ALT is 45, alkaline phosphatase is 360, albumin is 3.6. Hepatitis B surface antigen was nonreactive. Head CT showed no hemorrhage, mild chronic microvascular ischemic changes. Abdominal CT and pelvis showed cirrhosis, prominent atherosclerosis, likely sludge in the gallbladder. Chest x-ray showed bibasilar atelectasis. IMPRESSION AND PLAN: Jaundice Hepatic encephalopathy Hepatocellular carcinoma Ascites s/p Paracentesis today. Liver failure Coagulopathy Anemia Elevated LFT's PLAN: Patients LFT's are elevated , AST 200, ALT 45 and Alkaline Phos 300. The patient is currently on Xifaxan for his hepatic encephalopathy. Patient is on lactulose 30 ml TID, goal is to have 3-4 bowel movements and titrate if needed. Sandostatin 100 mcg subQ Patient is on antibiotic Zosyn. He is also on vitamin K for his coagulopathy and albumin daily. We will continue to monitor the patient's LFT's and follow the plan of care PCP. This plan was discussed with Dr. Pompa. Please call us with any further questions. Dictated by JERICHO Hernandez for Heriberto Pompa MD cc: Heriberto Pompa MD I have seen and examined the patient myself and I agree with the above plan of care. I have discussed the above with the patient;s and RN at bedside and all questions were answered. The patient's condition is declining and prognosis is poor. Will continue to follow along with daily labs. Please call us with any further questions. MTDD
[2019-05-31] MEDS: D5 1/2 NS 1,000 ML IV SCH ×2 (14:04→20:30)
[2019-05-31 15:54] LABS: BODY FLUID SOURCE ASCETIC FLUID; WBC BF 469 /cumm
[2019-05-31 16:04] LABS: ALBUMIN BODY FLUID 1.4 g/dL
[2019-05-31 16:22] LABS: MONOS 24 %; POLYS 76 %
[2019-06-01] MEDS: ZOSYN 2.25 GM in NS 50 ML IV SCH ×4 (03:34→23:08)
[2019-06-01] MEDS: MORPHINE IR PO PRN ×2 (03:34→20:48)
[2019-06-01] MEDS: SANDOSTATIN SUBQ SCH ×3 (05:11→20:50)
[2019-06-01 05:48] LABS: BASO# 0.01 X1000 (0.0-0.2); BASO% 0.1 % (0.0-0.8); EOS# 0.23 X1000 (0.0-0.7); HEMOGLOBIN 10.7 g/dL (14.0-18.0); IMM GRAN# 0.05 X1000 (0.0-0.04); IMM GRAN% 0.4 % (0.0-0.5); LYMPH# 0.69 X1000 (1.2-3.4); LYMPH% 6.1 % (20.5-51.1); MCHC 34.5 g/dL (33-37); MCV 95.7 FL (81-99); MONO# 1.55 X1000 (0.11-0.59); MONO% 13.8 % (1.7-9.3); MPV 11.6 FL (7.4-10.4); NEUT# 8.71 X1000 (1.4-6.5); NEUT% 77.6 % (42.2-75.2); PLT 127 X1000 (130-400); RBC 3.24 XMIL (4.7-6.1); RDW 17.8 % (11.5-14.5); WBC 11.24 X1000 (4.8-10.8)
[2019-06-01 06:07] LABS: INR 2.82; PROTIME 30.5 Seconds (11.0-16.0)
[2019-06-01 06:25] LABS: ALB/GLOB RATIO 1.7; ALBUMIN 3.4 g/dL (3.5-5.0); CALCIUM 8.3 mg/dL (8.8-10.2); CREATININE 2.1 mg/dL (0.7-1.2); POTASSIUM 3.9 mmol/L (3.5-5.1); TOTAL PROTEIN 5.4 g/dL (6.3-8.3)
[2019-06-01 06:36] LABS: TOTAL BILIRUBIN 22.51 mg/dL (0.20-1.00)
[2019-06-01] MEDS: D5 1/2 NS 1,000 ML IV SCH ×2 (09:22→16:30)
[2019-06-01] MEDS: LACTULOSE PO SCH ×3 (09:25→16:24)
[2019-06-01] MEDS: XIFAXAN PO SCH ×2 (09:25→20:49)
[2019-06-01] MEDS: VITAMIN K 10 MG in NS 50 ML IV SCH (09:25)
[2019-06-01] MEDS: PROAMATINE PO SCH ×3 (09:25→16:24)
[2019-06-01] MEDS: ALBUMIN 25% IV SCH (09:26)
[2019-06-01] MEDS: MYCOSTATIN POWDER TOP SCH (09:26)
[2019-06-01] MEDS: LACTULOSE MISC SCH ×3 (09:27→16:24)
[2019-06-01] MEDS: MARINOL PO SCH ×2 (09:33→20:48)
--- NOTE | 2019-06-01 09:38 | PROGRESS NOTE ---
DATE: 06/01/2019 SUBJECTIVE: The patient seems to be resting comfortably in bed. Apparently, he had a good night. Vital signs are stable, but he has poor prognosis. He has a history of hepatocellular carcinoma. Now, he is having acute kidney injury and elevated LFTs. I had a discussion with the about the situation, and she has decided to change his resuscitation status from full code to DO NOT RESUSCITATE level 1. Time discussing his advanced directive was around 20 minutes. PHYSICAL EXAMINATION: Vital Signs: Temperature 98 degrees, pulse 82, respiratory rate 14, blood pressure 114/67, oxygen saturation 91% on 2 L of nasal cannula. HEENT: Head normocephalic. No trauma. PERRLA. Icteric sclerae. Neck: Supple. No JVD. Central trachea. Chest: Clear to auscultation. Some crepitus at the bases. Abdomen: Soft, distended. It is nontender. Dullness to percussion, mostly on the flank. He has a dressing on the right upper quadrant. Positive bowel sounds. Extremities: There is 3+ to 4+ lower extremity edema, basically anasarca. Right leg erythema with some signs of infection. Neurological: This patient is alert. He is awake. He is hard of hearing. He is following commands. He is oriented x2. He is not oriented to time. LABORATORY DATA: WBC 11.2, hemoglobin 10.7, hematocrit 31, platelets 127,000. Sodium 137, potassium 3.9, chloride 98, bicarbonate 22, BUN 71, creatinine 2.1, glucose 129, calcium 8.3. Bilirubin 22.5, AST 174, ALT 44, alkaline phosphatase 352. ASSESSMENT AND PLAN: 1. Acute metabolic encephalopathy, likely multifactorial due to hepatic failure and uremia from acute kidney injury. Will continue with the same management for now. It looks like he is a little bit better. 2. Acute liver failure in the setting of hepatocellular carcinoma, ascites, and spontaneous bacterial peritonitis, hepatic encephalopathy, as well as hepatorenal syndrome. His bilirubin is worse compared with yesterday. We will continue with the same management for now. Gastroenterology Department, Oncology Department, and also Palliative Care Department on board. 3. Acute kidney injury with hyponatremia and hypochloremia, likely due to hepatorenal syndrome. Currently seems to be stable. Continue with the same management. 4. Constipation and altered mental status. Continue with rifaximin and lactulose. 5. Suspected sepsis with the presence of lactic acidosis, likely due to spontaneous bacterial peritonitis. Also, he has some right lower lung infiltrate and some redness on his legs. Continue with antibiotics. 6. Hepatocellular carcinoma with lymphadenopathy diagnosed in 12/2018. Oncology on board. 7. Poor prognosis. Palliative Care on board. I had a discussion with the at the bedside. We discussed about his advanced directive for about 20 minutes. We have changed his resuscitation status from full code to DO NOT RESUSCITATE level 1. TIME SPENT: Time taking care of this patient was 30 minutes, and time discussing with the , his advance directive, was 20 minutes. cc: Kashif Medrano MD
--- NOTE | 2019-06-01 14:25 | GASTROENTEROLOGY PROGRESS NOTE ---
DATE: 05/31/2019 SUBJECTIVE: Mr. Andujar is a 68-year-old male, resting in bed, alert, oriented x2. Family at the bedside. Family mentioned that the patient was able to keep down some broth and ate a little Jell-O today. So far he has had 2 bowel movements this morning and he had one last night. OBJECTIVE: Vital Signs: Temperature 98 degrees, pulse is 81, respirations 14, blood pressure 114/67, oxygen saturation 91% on 2 L nasal cannula. The patient's weight is 221 pounds, BMI is 30.1 kg/m2. General: He is alert, oriented x2 and in no acute distress. HEENT: Pale conjunctivae. Sclera icterus. PERRL. Neck: Supple. Lungs: Wheezing sound on the right upper lobes. Abdomen: Distended, obese, nontender. Active bowel sounds heard in all 4 quadrants. Extremities: No clubbing, no cyanosis. Pitting edema 3+ bilaterally and cellulitis in the right lower extremity. Neurological: Alert and oriented x3. LABORATORY DATA: WBCs 11.24, RBCs 3.24, hemoglobin is 10.7, hematocrit is 31.0, platelet count is 127,000. PT is 30.5, INR is 2.82. Sodium 137, potassium 3.9, chloride 98, anion gap 17, BUN 71, creatinine is 2.1, glucose 129, calcium 8.3. Total bilirubin is 22.51, AST 174, ALT is 44, alkaline phosphatase is 352. Albumin is 3.4. Ultrasound of the abdomen with paracentesis was done yesterday. The fluid was ascitic fluid, fluid WBCs were 469. Fluid polynuclear WBC of 76, mononuclear WBC of 25. Fluid crystals not reportable and fluid albumin was 1.4. IMPRESSION: 1. Jaundice. 2. Hepatic encephalopathy. 3. Hepatocellular carcinoma. 4. Ascites status post paracentesis. 5. Liver failure. 6. Coagulopathy. 7. Anemia. 8. Elevated liver function tests. PLAN: The patient liver function tests, AST was 174, ALT was 44, alkaline phosphatase was 352. It has been slightly trending downward.The patient is currently on Xifaxan for his hepatic encephalopathy. He is on lactulose 30 mL p.o. 3 times a day. The goal is to have 3-4 bowel movement, and titrate if needed. The patient is on Zosyn antibiotics. He is also receiving vitamin K for his coagulopathy. Patient's ascitic fluid shows spontaneous bacterial peritonitis, patient is on antibiotics and IV albumin. Patient's neurological condition has been improving and he is responding fairly well. We will continue to monitor patient's CBC, BMP, and follow the plan of care per PCP and the oncologist. This plan was discussed with Dr. Garcia. Please call us with any further questions or concerns. Dictated by JERICHO Hernandez for Marty Garcia MD Physician Attestation I have seen and examined the patient. I have discussed and reviewed the the note by Charlotte ECHAVARRIA and agree with findings and plan as documented. In brief, Mr. Kobe Andujar is a 68 year old man with metastatic HCC treated with Opdivo who was admitted with worsening decompensated cirrhosis in the setting of SBP. He is slowly improving on zosyn. He was empirically treated for HRS; however, this is not likely in setting of infection. Will stop octreotide/midodrine. Transaminases/ALP decreasing; INR and bilirubin remain elevated. Bilirubin usually lags behind AST and ALT. Imaging is negative for intra or extra-hepatic biliary dilation; therefore, biliary obstruction unlikely and ERCP is not indicated. Continue antibiotics, lactulose/rifaximin, and trending LFTs/INR daily. Recommend continued GOC discussion with family. Overall prognosis is poor. MTDD
[2019-06-01] MEDS ORDERED: LASIX IV ONE (22:04)
[2019-06-02] MEDS: ZOSYN 2.25 GM in NS 50 ML IV SCH ×4 (03:58→21:34)
[2019-06-02] MEDS: MORPHINE IR PO PRN ×2 (06:37→17:03)
[2019-06-02 06:38] LABS: BASO# 0.04 X1000 (0.0-0.2); BASO% 0.3 % (0.0-0.8); EOS# 0.23 X1000 (0.0-0.7); EOS% 1.5 % (0.0-10.0); HEMATOCRIT 33.1 % (42.0-52.0); HEMOGLOBIN 11.1 g/dL (14.0-18.0); IMM GRAN# 0.09 X1000 (0.0-0.04); IMM GRAN% 0.6 % (0.0-0.5); LYMPH# 1.12 X1000 (1.2-3.4); LYMPH% 7.5 % (20.5-51.1); MCH 33.8 PG (27-31); MCHC 33.5 g/dL (33-37); MCV 100.9 FL (81-99); MONO# 1.76 X1000 (0.11-0.59); MONO% 11.9 % (1.7-9.3); MPV 11.9 FL (7.4-10.4); NEUT% 78.2 % (42.2-75.2); PLT 103 X1000 (130-400); RBC 3.28 XMIL (4.7-6.1); RDW 18.5 % (11.5-14.5); WBC 14.84 X1000 (4.8-10.8)
[2019-06-02 07:28] LABS: ALB/GLOB RATIO 1.9; ALBUMIN 3.3 g/dL (3.5-5.0); CALCIUM 7.8 mg/dL (8.8-10.2); CREATININE 2.3 mg/dL (0.7-1.2); POTASSIUM 3.9 mmol/L (3.5-5.1); TOTAL BILIRUBIN 25.02 mg/dL (0.20-1.00)
--- NOTE | 2019-06-02 09:04 | PROGRESS NOTE ---
DATE: 06/02/2019 SUBJECTIVE: Patient is resting comfortably in bed. He is sleepy, but arousable, oriented x2. He is not oriented to time. He has a history of hepatocellular carcinoma; now he is having kidney injury and elevated liver function tests. I had a long discussion with the about his resuscitation status yesterday. We have placed this patient do not resuscitate level 1, and I communicated with his oncologist, Dr. Box, who will evaluate this patient today, but I believe this patient should go home with hospice. On the other hand, I also communicated with the palliative care team to evaluate this patient. OBJECTIVE: Vital Signs: Temperature 98.7 degrees, pulse 85, respiratory rate 14, blood pressure 131/68, oxygen saturation 96% on 2 L of nasal cannula. HEENT: Head normocephalic no trauma. PERRLA, icteric sclerae. Skin: Jaundice. Neck: Supple. No JVD. Central trachea. Chest: Clear to auscultation. Some crepitus at the bases. Abdomen: Soft, distended. He is nontender due to super percussion ascites. He has a dressing on the right upper quadrant. Positive bowel sounds. Extremities: Three to four plus lower extremity edema, basically anasarca. Right leg is with some signs of erythema. Neurological examination: This patient is sleepy, but arousable, oriented x2. He is hard of hearing. He is oriented to time, but he is able to recognize family members at the bedside. LABORATORY: WBC 14.8, hemoglobin 11.1, hematocrit 33.1, platelets 103. Sodium 139, potassium 3.9, chloride 101, bicarbonate 20. BUN 75, creatinine 2.3, glucose 116, calcium 7.8. AST 178, ALT 40, alkaline phosphatase 360, bilirubin 25.02. ASSESSMENT AND PLAN: 1. Acute metabolic encephalopathy, multifactorial due to hepatic failure and repeat uremia from acute kidney injury, spontaneous bacterial peritonitis, looks a little bit better, but still a little bit confused. As per the at the bedside, he has been confused on and off. 2. Acute liver failure in the setting of hepatocellular carcinoma, ascites, spontaneous bacterial peritonitis, hepatic encephalopathy, as well as probably hepatorenal syndrome. His bilirubin and kidney function are worse today. Gastroenterology Department, Oncology and Palliative Care Department on board. Likely this patient will go home with hospice. 3. Acute kidney injury with hyponatremia, hypochloremia. Likely he has a hepatorenal syndrome. 4. Constipation and altered mental status. Continue with rifaximin and lactulose. 5. Suspected sepsis with the presence of lactic acidosis and spontaneous bacterial peritonitis. Continue with same management. 6. Hepatocellular carcinoma with lymphadenopathy diagnosed in December of 2018. Oncology on board. Hopefully, he will be evaluated today at noon. Overall this patient has extremely poor prognosis. Palliative Care will be on board. I have been discussing with the family member at the bedside about hospice and she agreed with that. I will let the palliative care team to take care of the patient. Oncology will evaluate this patient also. . cc: Kashif Medrano MD
[2019-06-02] MEDS: LACTULOSE MISC SCH ×3 (09:33→16:37)
[2019-06-02] MEDS: LACTULOSE PO SCH ×3 (09:33→16:36)
[2019-06-02] MEDS: MARINOL PO SCH ×2 (09:33→21:34)
[2019-06-02] MEDS: ALBUMIN 25% IV SCH (09:33)
[2019-06-02] MEDS: MYCOSTATIN POWDER TOP SCH (09:34)
[2019-06-02] MEDS: VITAMIN K 10 MG in NS 50 ML IV SCH (09:37)
[2019-06-02] MEDS: XIFAXAN PO SCH ×2 (09:37→21:34)
[2019-06-02] MEDS: D5 1/2 NS 1,000 ML IV SCH (12:49)
--- NOTE | 2019-06-02 13:37 | PROVIDER PROGRESS NOTE ---
Progress Note S: No acute overnight events. He has had 3 bowel movements since yesterday. Poor PO intake. No abdominal pain, N/V. O: Last Vital Signs Temp 98.2 F 06/02/19 12:32 Pulse 88 06/02/19 12:32 Resp 14 06/02/19 12:32 BP 125/59 06/02/19 12:32 Pulse Ox 97 06/02/19 12:32 Height 6 ft Weight 222 lb 4 oz GEN: chronically ill-appearing HEENT: +icterus, MMM, EOMI NECK: supple, no JVD CV: RRR, no murmurs PULM: CTAB anteriorly ABD: soft NT/ND, BS present EXT: 3+ LE edema NEURO: AAOx2, no asterixis LABS: 06/02/19 06/02/19 05:30 05:30 WBC 14.84 H Hgb 11.1 L Plt Count 103 L Sodium 139 Potassium 3.9 Chloride 101 Carbon Dioxide 20 L BUN 75 H Creatinine 2.3 H Glucose 116 H Total Bilirubin 25.02 H AST 178 H ALT 40 Alkaline Phosphatase 360 H Total Protein 5.0 L Albumin 3.3 L # SBP # HRS # Hepatic encephalopathy # Decompensated cirrhosis # HCC # Coagulopathy # Thrombocytopenia A/P: Mr. 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 He is had some improvement with antibiotics and lactulose/rifaxmin. He is s/p octreotide/midodrine and albumin with minimal improvement of renal function. Labs notable for worsening leukocytosis and bilirubin. AST/ALT improving. Family and patient are planning on discharge with hospice services. In light of this, will sign off. Please call with questions. Will sign off. Please call with questions
[2019-06-03] MEDS: ZOSYN 2.25 GM in NS 50 ML IV SCH ×3 (04:36→12:04)
[2019-06-03] MEDS: MORPHINE IR PO PRN (04:53)
[2019-06-03 05:57] LABS: BASO# 0.02 X1000 (0.0-0.2); BASO% 0.1 % (0.0-0.8); EOS# 0.11 X1000 (0.0-0.7); EOS% 0.8 % (0.0-10.0); HEMATOCRIT 32.7 % (42.0-52.0); HEMOGLOBIN 11.1 g/dL (14.0-18.0); IMM GRAN# 0.09 X1000 (0.0-0.04); IMM GRAN% 0.6 % (0.0-0.5); LYMPH# 0.86 X1000 (1.2-3.4); LYMPH% 5.9 % (20.5-51.1); MCH 33.1 PG (27-31); MCHC 33.9 g/dL (33-37); MCV 97.6 FL (81-99); MONO# 1.51 X1000 (0.11-0.59); MONO% 10.3 % (1.7-9.3); MPV 12.5 FL (7.4-10.4); NEUT# 12.01 X1000 (1.4-6.5); NEUT% 82.3 % (42.2-75.2); PLT 100 X1000 (130-400); RBC 3.35 XMIL (4.7-6.1); RDW 17.8 % (11.5-14.5)
[2019-06-03 06:29] LABS: ALB/GLOB RATIO 1.7; ALBUMIN 3.1 g/dL (3.5-5.0); CALCIUM 8.3 mg/dL (8.8-10.2); CREATININE 2.9 mg/dL (0.7-1.2); TOTAL PROTEIN 4.9 g/dL (6.3-8.3)
[2019-06-03 06:40] LABS: TOTAL BILIRUBIN 26.1 mg/dL (0.20-1.00)
[2019-06-03] MEDS: LACTULOSE PO SCH (08:31)
[2019-06-03] MEDS: ALBUMIN 25% IV SCH (08:31)
[2019-06-03] MEDS: XIFAXAN PO SCH (08:31)
[2019-06-03] MEDS: MARINOL PO SCH (08:31)
[2019-06-03] MEDS: LACTULOSE MISC SCH (08:33)
--- NOTE | 2019-06-03 10:56 | DISCHARGE SUMMARY ---
ADMISSION DATE: 05/29/2019 DISCHARGE DATE: 06/03/2019 DISCHARGE DIAGNOSES: 1. Metabolic encephalopathy, multifactorial due to hepatic failure, uremia, spontaneous bacterial peritonitis. 2. Acute liver failure in the setting of hepatocellular carcinoma. 3. Hepatocellular carcinoma. 4. Spontaneous bacterial peritonitis. 5. Hepatic encephalopathy. 6. Hepatorenal syndrome. 7. Acute kidney injury. 8. Constipation. 9. Sepsis due to spontaneous bacterial peritonitis. 10. Poor prognosis. Do not resuscitate level 1. Discharged home with hospice. CONSULTATIONS: 1. Gastroenterology Department Dr. Garcia, Dr. Pompa. 2. Hematology/Oncology Dr. Leann Cazares PROCEDURES PERFORMED: 1. Chest x-ray dated 05/28/2019: Impression bibasilar subsegmental atelectasis. 2. Abdomen and pelvis CT scan dated 05/29/2019: Impression liver cirrhosis, prominent atherosclerosis, likely sludge in the gallbladder. 3. Head CT dated 05/29/2019: Impression no hemorrhage, mild chronic microvascular ischemic changes. HOSPITAL COURSE: Mr. Andjuar is an unfortunate 68-year-old male recently diagnosed with hepatocellular carcinoma, treating by Dr. Box. He has been getting paracentesis done as an outpatient. He came in because of shortness of breath and constipation, but the main concern was confusion. He has an elevated white blood cell count. He was admitted with broad-spectrum antibiotics. He was evaluated by Gastroenterology Department and Hematology/Oncology Department. He was placed on medications to stimulate the bowel function, also he was placed on antibiotics. Paracentesis was done and showed SBP. The kidneys upon admission where failing and they are getting worse on a daily basis. At the beginning of this month on 05/14/2019 the creatinine was 1, today is 2.9, and he has signs of deterioration. Palliative Care was consulted and after a long discussion with the at the bedside his resuscitation status was changed to DNR and also they opted to go home with hospice, which will happen today. At the moment of discharge, this patient has extremely poor prognosis. He is confused. He is weak. PHYSICAL EXAMINATION: Vital Signs: Temperature 98.1 degrees, pulse 86, respiratory rate 15, blood pressure 123/63, oxygen saturation 98 on 2 L of nasal cannula. HEENT head normocephalic, no trauma. PERRLA. Anicteric sclera. Skin jaundice. Neck is supple no JVD. Central trachea. Chest: Coarse breath sounds bilaterally with crepitus at the bases. Abdomen is distended. He has ascites. Dressing in the right upper quadrant. Positive bowel sounds. Extremities 3 to 4+ lower extremity edema, basically anasarca, some erythema on the right side. Neurological examination this patient is sleepy, but arousable. He is disoriented. He is hard of hearing. LABORATORY: WBC 14.6, hemoglobin 11.1, hematocrit 32.7, platelets 100,000. Sodium 135, potassium 4, chloride 98, bicarbonate 20, BUN 18, BUN 82, creatinine 2.9, glucose 114, calcium 8.3, AST 180, ALT 42, alkaline phosphatase 311, albumin 3.1. DISCHARGE MEDICATIONS: 1. Tessalon 200 mg p.o. t.i.d. as needed for cough. 2. Dronabinol 5 mg p.o. b.i.d.. 3. Lactulose 30 mL p.o. t.i.d.. 4. Morphine 15 mg p.o. q 6 to 8 hours as needed for pain. 5. Rifaximin 550 mg p.o. b.i.d. 6. Nystatin powder 1 application daily. This medications will be changed by hospice care, they will try to keep this patient comfortable. No aggressive measures. DISPOSITION: The patient has been discharged home with hospice, extremely poor prognosis. cc: Kashif Medrano MD
[2019-06-03] MEDS ORDERED: ROXANOL CONC. LIQUID PO ONE (11:52)
[2019-06-03 12:35] VITALS: BP 122/61
== END 2019-06-03 12:50 | disposition hospice, home (50) | DRG 871 ==
LOC: ED 18:24 → SUATTDRO 05-29 02:09 → EDIPHOLD 05-29 02:09 → 2N 05-29 12:39
PROVIDERS: ATTEND Internal Medicine